=== PATIENT | male | born 1980 | race Caucasian/White ===

== ENCOUNTER 2016-10-31 18:32 | Emergency (ER) | payer BC ==
[~2016-10-31] VITALS: Ht 182.9 cm; Wt 89.8 kg
[2016-10-31 18:46] VITALS: Ht 182.9 cm; Wt 89.8 kg
[2016-10-31] MEDS ORDERED: NAPR1TAB9 PO (19:14)
[2016-10-31] MEDS ORDERED: XYLOCAINE 1%/SOD BICARB 20 ML VIAL INFIL ONE (19:15)
--- NOTE | 2016-10-31 19:30 | DIAGNOSTIC IMAGING REPORT ---
RIGHT KNEE 2 VIEWS CLINICAL HISTORY: Right knee pain and swelling. FINDINGS: AP and crosstable lateral views of the right knee are obtained. No prior studies are available for comparison at the time of dictation. The skeletal structures are well mineralized. No fracture is seen. The joint spaces of the knee are preserved. There is a small joint effusion. Soft tissue edema is present around the knee. IMPRESSION: Soft tissue swelling and joint effusion. No fracture is identified. Electronically signed by: Pavel Ragland M.D. 10/31/2016 7:28 PM Dictated Date/Time: 10/31/2016 7:28 PM
[2016-10-31 20:03] LABS: BASO % 0.2 %; BASO ABS # 0.02 K/uL (0-0.2); COMPLETE YES; EOS % 1.1 %; HEMATOCRIT 39.9 % (42-52); IG% 0.2 %; LYMPH % 19.4 %; LYMPH ABS # 2.03 K/uL (1.2-3.4); MEAN CELL VOLUME 85.4 fL (80-100); MEAN CORPUSCULAR HGB CONC 36.3 g/dl (32-36); MONO % 10.4 %; NEUT % 68.7 %; PLATELET COUNT 217 K/uL (130-400); RED BLOOD COUNT 4.67 M/uL (4.7-6.1); WHITE BLOOD COUNT 10.46 K/uL (4.8-10.8)
[2016-10-31 20:20] LABS: ALT/SGPT 39 U/L (12-78); AST/SGOT 21 U/L (15-37); BLOOD UREA NITROGEN 14 mg/dl (7-18); BUN/CREATININE RATIO 16.9 (10-20); C-REACTIVE PROTEIN 6.73 mg/dl (0-0.29); CALCIUM 9.1 mg/dl (8.5-10.1); CARBON DIOXIDE 26 mmol/L (21-32); CHLORIDE 108 mmol/L (98-107); GLUCOSE 85 mg/dl (70-99); SODIUM 140 mmol/L (136-145)
[2016-10-31 20:23] LABS: ALKALINE PHOSPHATASE 89 U/L (45-117)
[2016-10-31] MEDS ORDERED: CEFTRIAXONE SOD INJ 1 GM ADDVIAL IV STA (20:41)
[2016-10-31] MEDS ORDERED: SULFAMETHOXAZOLE/TRIMETHOPRIM DS 800/160MG TAB PO STA (20:41)
[2016-10-31 20:49] LABS: LYME DISEASE AB IGG NEG (NEG); LYME DISEASE AB IGM NEG (NEG)
[2016-10-31] MEDS ORDERED: SULF800T23 PO (20:56)
[2016-10-31] MEDS ORDERED: CEPH500C PO (20:56)
--- NOTE | 2016-10-31 20:56 | EMERGENCY ROOM VISIT NOTE ---
History First contact with patient: 18:52 Chief Complaint: KNEEPAIN Stated Complaint: SWOLLEN PAINFUL RT KNEE & RASH History of Present Illness The patient is a 36 year old male who presents to the Emergency Room with complaints of right knee redness, swelling, and pain for past 3 days. He denies any known injury to the knee. He does have a scrape on the skin just below the knee from a few days ago. Patient does state a history of cellulitis several times in the past that was similar to this, however he feels this is worse than usual. Patient states he has pain with bending the knee and with walking on it. Today the pain became so severe that he was having difficulty walking because of the pain. He has tried Tylenol and ibuprofen with some improvement in the pain, but it keeps getting worse. Patient states he was seen at an urgent care, who were worried about infection in the joint and sent him to the ER for further evaluation. Patient denies any fevers, chills, nausea /vomiting, chest pain, shortness of breath, hip pain, ankle pain, generalized joint pain or swelling, urinary symptoms. Review of Systems A complete 10 point review of systems was reviewed with the patient with pertinent positives and negatives as per history of present illness. All else were negative. Social History Smoking Status: Never Smoker Alcohol Use: none Drug Use: none Marital Status: Housing Status: lives with significant other Occupation Status: employed Current/Historical Medications Scheduled Cephalexin Monohydrate (Keflex), 500 MG PO QID Sulfa/Trimethoprim (Bactrim Ds 800MG/160MG), 1 TAB PO BID Miscellaneous Medications Naproxen (Aleve), 440 MG PO Allergies Coded Allergies: No Known Allergies (Unverified , 09/11/12) Physical Exam Vital Signs Date Time Temp Pulse Resp B/P (MAP) Pulse Ox O2 Delivery O2 Flow Rate FiO2 10/31/16 21:16 84 16 142/81 98 Room Air 10/31/16 18:46 37.0 87 18 129/85 97 Room Air Physical Exam CONSTITUTIONAL: No acute distress. Well appearing and well nourished. Alert and oriented X 4 with normal affect. HEENT: Normocephalic, atraumatic. Pupils equal, round and reactive to light, EOMI. TMs normal. Pharynx normal. NECK: Supple, full active range of motion without discomfort. RESPIRATORY: Clear to auscultation bilaterally with no wheezing, crackles, rhonchi or stridor. Equal expansion bilaterally. CARDIOVASCULAR: Regular rate and rhythm with no murmurs, rubs or gallops. Normal peripheral perfusion. No edema. GASTROINTESTINAL: Soft, nontender, nondistended. Bowel sounds present in all quadrants. MUSCULOSKELETAL: The right knee is erythematous, hot to touch, mildly swollen with a small effusion. Increased pain with flexion of the knee. Full extension of the knee without pain. Full range of motion of all other joints without discomfort. INTEGUMENTARY: No rash or other significant dermatologic conditions noted. NEUROLOGIC: Cranial nerves II-XII grossly intact. No focal neurologic deficits noted. Medical Decision & Procedures ER Provider Diagnostic Interpretation: RIGHT KNEE 2 VIEWS CLINICAL HISTORY: Right knee pain and swelling. FINDINGS: AP and crosstable lateral views of the right knee are obtained. No prior studies are available for comparison at the time of dictation. The skeletal structures are well mineralized. No fracture is seen. The joint spaces of the knee are preserved. There is a small joint effusion. Soft tissue edema is present around the knee. IMPRESSION: Soft tissue swelling and joint effusion. No fracture is identified. Laboratory Results 10/31/16 19:45 Red Blood Count 4.67, Mean Corpuscular Volume 85.4, Mean Corpuscular Hemoglobin 31.0, Mean Corpuscular Hemoglobin Concent 36.3, Mean Platelet Volume 10.0, Neutrophils (%) (Auto) 68.7, Lymphocytes (%) (Auto) 19.4, Monocytes (%) (Auto) 10.4, Eosinophils (%) (Auto) 1.1, Basophils (%) (Auto) 0.2, Neutrophils # (Auto ) 7.18, Lymphocytes # (Auto) 2.03, Monocytes # (Auto) 1.09, Eosinophils # (Auto ) 0.12, Basophils # (Auto) 0.02 10/31/16 19:45 Test 10/31/16 19:07 10/31/16 19:45 White Blood Count 10.46 K/uL (4.8-10.8) Red Blood Count 4.67 M/uL (4.7-6.1) Hemoglobin 14.5 g/dL (14.0-18.0) Hematocrit 39.9 % (42-52) Mean Corpuscular Volume 85.4 fL (80-100) Mean Corpuscular Hemoglobin 31.0 pg (25-34) Mean Corpuscular Hemoglobin Concent 36.3 g/dl (32-36) Platelet Count 217 K/uL (130-400) Mean Platelet Volume 10.0 fL (7.4-10.4) Neutrophils (%) (Auto) 68.7 % Lymphocytes (%) (Auto) 19.4 % Monocytes (%) (Auto) 10.4 % Eosinophils (%) (Auto) 1.1 % Basophils (%) (Auto) 0.2 % Neutrophils # (Auto) 7.18 K/uL (1.4-6.5) Lymphocytes # (Auto) 2.03 K/uL (1.2-3.4) Monocytes # (Auto) 1.09 K/uL (0.11-0.59) Eosinophils # (Auto) 0.12 K/uL (0-0.5) Basophils # (Auto) 0.02 K/uL (0-0.2) RDW Standard Deviation 37.2 fL (36.4-46.3) RDW Coefficient of Variation 12.2 % (11.5-14.5) Immature Granulocyte % (Auto) 0.2 % Immature Granulocyte # (Auto) 0.02 K/uL (0.00-0.02) Erythrocyte Sedimentation Rate 8 mm/hr (0-14) Anion Gap 6.0 mmol/L (3-11) Est Creatinine Clear Calc Drug Dose 140.1 ml/min Estimated GFR () 133.2 Estimated GFR (Non- 114.9 BUN/Creatinine Ratio 16.9 (10-20) Uric Acid 4.0 mg/dl (2.6-7.2) Calcium Level 9.1 mg/dl (8.5-10.1) Total Bilirubin 0.6 mg/dl (0.2-1) Direct Bilirubin < 0.1 mg/dl (0-0.2) Aspartate Amino Transf (AST/SGOT) 21 U/L (15-37) Alanine Aminotransferase (ALT/SGPT) 39 U/L (12-78) Alkaline Phosphatase 89 U/L (45-117) C-Reactive Protein 6.73 mg/dl (0-0.29) Total Protein 6.9 gm/dl (6.4-8.2) Albumin 3.9 gm/dl (3.4-5.0) Lyme Disease IgG Antibody NEG (NEG) Lyme Disease IgM Antibody NEG (NEG) Medications Administered Medications (Trade) Dose Ordered Sig/Gregg Route Start Time Stop Time Status Last Admin Dose Admin Ceftriaxone Sodium (Rocephin Inj) 1 gm NOW STAT IV 10/31/16 20:41 10/31/16 20:43 DC 10/31/16 20:53 1 GM Trimethoprim/ Sulfamethoxazole (Septra Ds 800/ 160MG Tab) 1 tab NOW STAT PO 10/31/16 20:41 10/31/16 20:43 DC 10/31/16 20:54 1 TAB Procedure Knee Arthrocentesis, right Indication: Hot, red knee with small effusion Verbal consent was obtained after the risks and benefits were explained, including but not limited to bleeding/clotting, scarring, infection, pain, and bone/joint/nerve damage. At this time, the risks of the procedure are less than the risks of NOT performing the procedure. A time out was taken and the correct patient and site identified. The patient was placed in the supine position with a towel roll under the right knee in a slightly flexed position. The knee was prepped with betadine and draped in the standard fashion. The inferior lateral joint space was identified, anesthetized locally with 1% buffered lidocaine. An 18G needle was inserted through the skin, and constant steady traction was applied to the syringe as the needle was slowly advanced into the knee joint space. Patient did not tolerate the procedure well, frequently tensing and jerking the knee. No joint fluid aspirate was obtained, and the procedure was not further pursued due to patient's poor tolerance of the procedure. The needle was removed and the skin was cleaned with sterile guaze and saline, and a bandaid was placed over the insertion site. There were no complications. Medical Decision CC: Patient presenting with complaint of right knee pain, swelling, redness Interpretation of Labs: No leukocytosis, no anemia, no significant electrolyte abnormalities, normal renal function, normal liver function. Significantly elevated CRP with a normal ESR. Lyme testing negative. Unable to obtain synovial fluid samples due to patient's poor tolerance of the arthrocentesis. Differential Diagnosis: Includes, but not limited to cellulitis, abscess, septic joint, gouty arthritis, Lyme arthritis, among others Medication Reconciliation: I attest that I have personally reviewed the patient' s current medication list. Vital signs review: I reviewed the patient's vital signs and interpret them as follows: T: Afebrile; BP: Normotensive; HR: Within normal limits; RR: Within normal limits; Pulse Ox: Within normal limits on room air. Blood pressure screening: The patient was found to have normal blood pressure on screening and does not require follow-up for repeat blood pressure check. Summary: Patient was evaluated at bedside, history of physical exam performed. Patient is alert and oriented, no acute distress. The right knee is mildly swollen with a possible small effusion, erythematous, hot to touch. Increased pain with range of motion of the knee, especially flexion past 45. Orders were placed at bedside for labs including inflammatory markers, x-ray of the knee. Labs reviewed, CRP noted to be significantly elevated, no other acute concerns. X-ray of the knee reviewed, small effusion, no other bony abnormalities. Arthrocentesis of the right knee was attempted, patient was unable to tolerate the procedure and no synovial fluid was collected. See procedure note for more details. Patient discussed with Dr. Magallanes, who also evaluated the patient and agrees with my assessment and plan. Patient was treated with IV Rocephin and PO Bactrim, placed in knee immobilizer and given crutches for comfort. Prescriptions for Keflex and Bactrim sent to pharmacy and patient was provided with referral contact information for orthopedics for close follow up. Patient reassessed multiple times throughout ED stay, patient has improvement in his knee pain after treatment. Patient was updated on all results and plan for discharge with orthopedic follow -up, he verbalized understanding. Patient was also given strict return precautions should his symptoms worsen in any way, he verbalized understanding. Patient was discharged home in stable condition. Impression Primary Impression: Cellulitis of right knee Additional Impression: Pain and swelling of right knee Departure Information Dispostion Home / Self-Care Condition GOOD Prescriptions Sulfa/Trimethoprim (Bactrim Ds 800MG/160MG) Tab 1 TAB PO BID for 10 Days, #20 TAB Prov: Zoey Denis CRNP 10/31/16 Cephalexin Monohydrate (Keflex) 500 Mg Cap 500 MG PO QID for 10 Days, #40 CAP Prov: Zoey Denis CRNP 10/31/16 Referrals Paolo Meza D.O. Call first thing Thursday to schedule a follow-up appointment Patient Instructions ED Infec Skin Cellulitis, My [facility] Additional Instructions Take all antibiotics as prescribed for the full 10 days. Ibuprofen 600 mg and Tylenol 1000 mg every 8 hours for pain. Alternate ice and heat to the knee for comfort. Follow up with orthopedics in the next few days, call for an appointment. Please return to the ER for worsening symptoms, including severe worsening pain , increased swelling, spreading redness, you're unable to walk on it or bend the knee due to pain, fever/chills/feeling ill, or any other concerns. Problem Qualifiers
[2016-10-31 21:40] VITALS: BP 142/81; PULSE 84; TEMP 37; O2SAT 98
== END 2016-10-31 21:41 | disposition home or self-care (01) ==
LOC: C.EDB 18:33 → C.EDD 21:41
DX: M25.461 Effusion, right knee (principal); L03.115 Cellulitis of right lower limb